=== PATIENT | male | born 1960 | race Caucasian/White ===

== ENCOUNTER 2017-09-23 09:54 | Day surgery (SDC) | payer BC ==
[2017-09-23] MEDS ORDERED: fentaNYL 100 MCG/2 ML SDV ONE (09:55)
[2017-09-23] MEDS ORDERED: Propofol 200 MG/20 ML SDV ONE (09:55)
[2017-09-23] MEDS ORDERED: Midazolam 1 MG/ML 2 ML SDV ONE (09:55)
[2017-09-23] MEDS ORDERED: Sodium Chloride 0.9% 5 ML Syringe FLUSH PRN (10:00)
[2017-09-23] MEDS ORDERED: Lactated Ringers 1,000 ML IV SCH (10:00)
[2017-09-23] MEDS ORDERED: Propofol 200 MG/20 ML SDV IV ONE (11:34)
[2017-09-23] MEDS ORDERED: fentaNYL 100 MCG/2 ML SDV IV ONE (11:34)
[2017-09-23] MEDS ORDERED: Midazolam 1 MG/ML 2 ML SDV IV ONE (11:34)
--- NOTE | 2017-09-23 11:58 | PCM.OPNOTE ---
- General Post-Op/Procedure Note Date of Surgery/Procedure: 09/23/17 Operative Procedure(s): Colonoscopy and polypectomy Findings: Very small polyp was identified in the rectum approximately 12 cm from anal margin. Polypectomies performed with a regular cold biopsy forceps. Pre Op Diagnosis: Alteration of bowel habits, abdominal pain. Post-Op Diagnosis: Small polyp of the rectum otherwise negative colonoscopy. Anesthesia Technique: Moderate Sedation Primary Surgeon: Bernard Rios Complications: None Condition: Good Free Text/Narrative:: INFORMED CONSENT: Patient is here today for elective colonoscopy. All aspects of this procedure have been discussed with the patient. All possible complications also, including possibility of perforation, infection, pain, bleeding and unknown complications. In the event of perforation patient may need to have abdominal exploration, colon resection, colostomy and even was discussed. Anesthetic complications were handled by anesthesia department. The patient understands fully well. Patient did not have any further questions for me at the end of my interview. The patient wishes for me to proceed. PREOPERATIVE DIAGNOSIS/INDICATIONS: Alteration of bowel habits, abdominal pain. POSTOPERATIVE DIAGNOSIS: [Small polyp in the rectum otherwise negative colonoscopy] INSTRUMENT USED: Olympus videocolonoscope. ASA CLASSIFICATION: [2] ANESTHESIA: Continuous EKG, oximetry and intermittent blood pressure and respiratory monitoring were performed throughout the procedure. IV Versed and Fentanyl were administered. PROCEDURE PERFORMED: Colonoscopy POSITIONS OF PATIENT: Left lateral. RECTUM: A small polyp was identified at 15 cm. This was removed using the cold biopsy forceps.. SIGMOID COLON: Normal. DESCENDING COLON: Normal. SPLENIC FLEXURE: Normal. TRANSVERSE COLON: Normal. HEPATIC FLEXURE: Normal. ASCENDING COLON: Normal. CECUM: Normal. ILEOCECAL VALVE: Normal. BIOPSY: None. TOLERANCE: Excellent. COMPLICATIONS: None.
[2017-09-23 12:40] VITALS: BP 151/72
== END 2017-09-23 13:07 | disposition home or self-care (01) ==
LOC: KA.SDS 09:54
PROVIDERS: ATTEND Family Medicine
DX: K62.1 Rectal polyp (principal); R19.4 Change in bowel habit; R10.9 Unspecified abdominal pain
CPT/HCPCS: 45380; J2250; J2704; J3010; J7120

== ENCOUNTER 2019-12-11 01:47 | Emergency (ER) | payer OTHER ==
--- NOTE | 2019-12-11 02:12 | EDM.PDOC ---
ED HPI GENERAL MEDICAL PROBLEM - General Chief Complaint: General Stated Complaint: abdominal pain Time Seen by Provider: 12/11/19 02:11 Source of Information: Reports: Patient, Family History Limitations: Reports: No Limitations - History of Present Illness INITIAL COMMENTS - FREE TEXT/NARRATIVE: Awoke 0120 with severe right-sided abdominal pain. Right side mid abdominal nonradiating. States yesterday urine was slightly darker. Denies fever chills, or illness. Denies any exposures to illness, no viral exposure. No heavy lifting or episodic changes. Urge to urinate but unable to go once at home. Episode nausea with no vomiting. Ice cream did not agree with him last night but states that is not uncommon. Denies any fatty food irritants or gallbladder history. Did have kidney stone 2013 but states this pain is different. No known medical concerns attributed similar to this. Onset: Today Duration: Minutes:, Getting Worse Location: Reports: Abdomen Quality: Reports: Ache, Pressure Severity: Moderate Improves with: Reports: None Worsens with: Reports: Movement Context: Reports: Other Associated Symptoms: Reports: No Other Symptoms Right Abdomen Pain Score (Numeric/FACES): 10 - Related Data Allergies Allergy/AdvReac Type Severity Reaction Status Date / Time No Known Drug Allergies Allergy Cannot Verified 12/11/19 03:05 Remember Home Meds: Home Meds Benazepril [Lotensin] 5 mg PO DAILY 12/11/19 [History] Cholecalciferol (Vitamin D3) [Vitamin D3] 50 mcg PO BID 12/11/19 [History] Glucosamine/Msm/Chondroitin A [Glucosamine Chondroit MSM Tab] 2 tab PO QPM 12/11/19 [History] Hydrocodone/Acetaminophen [[place] 10-325 Tablet] 1 each PO Q4HR 5 Days #20 tablet 12/11/19 [Rx] Naproxen Sodium 220 mg PO BID 12/11/19 [History] Tamsulosin HCl [Flomax] 0.4 mg PO DAILY 30 Days #30 cap.er.24h 12/11/19 [Rx] Thyroid,Pork [[place] Thyroid] 30 mg PO QAM 12/11/19 [History] Past Medical History HEENT History: Reports: None Cardiovascular History: Reports: Hypertension Respiratory History: Reports: None Gastrointestinal History: Reports: None Genitourinary History: Reports: Renal Calculus (2013) Musculoskeletal History: Reports: None Neurological History: Reports: None Psychiatric History: Reports: None Endocrine/Metabolic History: Reports: Hypothyroidism Hematologic History: Reports: None Immunologic History: Reports: None Oncologic (Cancer) History: Reports: None Dermatologic History: Reports: None - Infectious Disease History Infectious Disease History: Reports: None - Past Surgical History GI Surgical History: Reports: Colonoscopy Male Surgical History: Reports: Lithotripsy ([facility]) - History Comment History Comment: Recent physical past month, stating everything was doing well with no concerns. Social & Family History - Family History Family Medical History: Noncontributory - Tobacco Use Smoking Status *Q: Former Smoker Tobacco Use Within Last Twelve Months: No Used Tobacco, but Quit: Yes Month/Year Tobacco Last Used: 1989? Smoking Cessation Information Provided To Patient: No Second Hand Smoke Exposure: No - Caffeine Use Caffeine Use: Reports: Coffee - Alcohol Use Days Per Week of Alcohol Use: 0 Number of Drinks Per Day: 0 Total Drinks Per Week: 0 Alcohol Use in Last Twelve Months: No - Recreational Drug Use Recreational Drug Use: No Drug Use in Last 12 Months: No - Living Situation & Occupation Living situation: Reports: , with Spouse Occupation: Employed (farm truck driver) ED ROS GENERAL - Review of Systems Review Of Systems: Comprehensive ROS is negative, except as noted in HPI. ED EXAM, GENERAL - Physical Exam Exam: See Below General Appearance: Alert, WD/WN, Moderate Distress Ears: Normal External Exam, Normal Canal, Hearing Grossly Normal Nose: Normal Inspection, Normal Mucosa, No Blood Throat/Mouth: Normal Inspection, Normal Lips, Normal Teeth, Normal Gums, Normal Oropharynx, Normal Voice, No Airway Compromise Head: Atraumatic, Normocephalic Neck: Normal Inspection, Supple, Non-Tender, Full Range of Motion Respiratory/Chest: No Respiratory Distress, Lungs Clear, Normal Breath Sounds, No Accessory Muscle Use, Chest Non-Tender Cardiovascular: Normal Peripheral Pulses, Regular Rate, Rhythm, No Edema, No Gallop, No JVD, No Murmur, No Rub GI/Abdominal: Soft, Tender (Right to mid and slightly to the right flank) (Male) Exam: Deferred Rectal (Males) Exam: Deferred Back Exam: Normal Inspection, Full Range of Motion, CVA Tenderness (R) Extremities: Normal Inspection, Normal Range of Motion, Non-Tender, Normal Capillary Refill, No Pedal Edema Neurological: Alert, Oriented, CN II-XII Intact, Normal Cognition, Normal Gait, Normal Reflexes, No Motor/Sensory Deficits Psychiatric: Normal Affect, Normal Mood Skin Exam: Warm, Dry, Intact, Normal Color, No Rash Lymphatic: No Adenopathy Course - Vital Signs Last Recorded V/S: Last Vital Signs Temp 35.9 C L 12/11/19 02:08 Pulse 99 12/11/19 02:08 Resp 18 12/11/19 02:08 BP 171/103 H 12/11/19 02:08 Pulse Ox 98 12/11/19 02:08 - Orders/Labs/Meds Orders: Active Orders 24 hr Category Date Time Status Peripheral IV Care [RC] . DIRECTED Care 12/11/19 02:17 Active Abdomen Pelvis wo Cont [CT] Stat Exams 12/11/19 03:19 Ordered Sodium Chloride 0.9% [Normal Saline] 1,000 ml Med 12/11/19 03:45 Ordered IV ASDIRECTED Sodium Chloride 0.9% [Saline Flush] Med 12/11/19 02:17 Active 10 ml FLUSH Q8HR PRN Peripheral IV Insertion Adult [OM.PC] Routine Oth 12/11/19 02:17 Ordered Medication Orders Sodium Chloride (Normal Saline) 1,000 mls @ 999 mls/hr IV ASDIRECTED MIGUEL ANGEL Last Admin: 12/11/19 03:46 Dose: 999 mls/hr Documented by: ABERCEL Sodium Chloride (Saline Flush) 10 ml FLUSH Q8HR PRN PRN Reason: keep vein open Labs: Laboratory Tests 12/11/19 12/11/19 12/11/19 Range/Units 02:41 02:41 03:05 WBC 7.60 (5.00-10.00) 10^3/uL RBC 5.34 (4.50-6.00) 10^6/uL Hgb 16.3 (13.0-17.0) g/dL Hct 47.0 (40.0-52.0) % MCV 88.0 (82.0-92.0) fL MCH 30.5 (27.0-31.0) pg MCHC 34.7 (32.0-36.0) g/dL RDW 12.3 (11.5-14.5) % Plt Count 266 (150-400) 10^3/uL MPV 8.9 (7.4-10.4) fL Immature Gran % (Auto) 0.1 (0.0-5.0) % Neut % (Auto) 46.7 L (50.0-70.0) % Lymph % (Auto) 37.5 (20.0-40.0) % [place] % (Auto) 9.6 H (2.0-8.0) % Eos % (Auto) 5.8 H (1.0-3.0) % Baso % (Auto) 0.3 (0.0-1.0) % Neut # (Auto) 3.55 (2.50-7.00) 10^3/uL Lymph # (Auto) 2.85 (1.00-4.00) 10^3/uL [place] # (Auto) 0.73 (0.10-0.80) 10^3/uL Eos # (Auto) 0.44 H (0.10-0.30) 10^3/uL Baso # (Auto) 0.02 (0.00-0.10) 10^3/uL Immature Gran # (Auto) 0.01 (0.00-0.50) 10^3/uL Sodium 147 H (136-145) mmol/L Potassium 4.1 (3.3-5.3) mmol/L Chloride 106 (98-115) mmol/L Carbon Dioxide 27.3 (21.0-32.0) mmol/L Anion Gap 17.8 H (5-15) mmol/L BUN 28 H (6-25) mg/dL Creatinine 1.00 (0.51-1.17) mg/dL Est Cr Clr Drug Dosing 78.56 mL/min Estimated GFR (MDRD) > 60 mL/min Glucose 126 H (75 - 99) mg/dL Calcium 9.1 (8.7-10.3) mg/dL Total Bilirubin 0.5 (0.2-1.0) mg/dL AST 21 (15-37) U/L ALT 35 (12-78) U/L Alkaline Phosphatase 75 (46-116) IU/L Total Protein 7.7 (6.4-8.2) g/dL Albumin 4.05 (3.00-4.80) g/dL Amylase 45 (25-125) U/L Lipase 165 (73-393) U/L Specimen Type Urincc Urine Color Dark yellow H (YELLOW) Urine Appearance Clear (CLEAR) Urine pH 5.5 (5.0-9.0) Ur Specific [place] >= 1.030 (1.005-1.030) Urine Protein Negative (NEGATIVE) mg/dL Urine Glucose (UA) Negative (NEGATIVE) mg/dL Urine Ketones Negative (NEGATIVE) mg/dL Urine Occult Blood Large H (NEGATIVE) Urine Nitrite Negative (NEGATIVE) Urine Bilirubin Negative (NEGATIVE) Urine Urobilinogen 0.2 (0.2-1.0) E.U./dL Ur Leukocyte Esterase Negative (NEGATIVE) Urine RBC 50-75 H (0-5) /HPF Urine WBC 0-5 (0-5) /HPF Ur Epithelial Cells Rare /LPF Amorphous Sediment Few (0/HPF) /HPF Urine Bacteria Not seen (NONE TO FEW) /HPF Urine Mucus Few H (NEGATIVE) /LPF Meds: Medications Generic Name Dose Route Start Last Admin Trade Name Freq PRN Reason Stop Dose Admin Sodium Chloride 1,000 mls @ 999 mls/hr 12/11/19 03:45 12/11/19 03:46 Normal Saline IV 999 mls/hr ASDIRECTED MIGUEL ANGEL Administration Sodium Chloride 10 ml 12/11/19 02:17 Saline Flush FLUSH Q8HR PRN keep vein open Discontinued Medications Generic Name Dose Route Start Last Admin Trade Name Freq PRN Reason Stop Dose Admin Hydromorphone HCl 1 mg 12/11/19 03:58 12/11/19 04:03 Dilaudid IVPUSH 12/11/19 03:59 1 mg ONETIME ONE Administration Sodium Chloride 1,000 mls @ 999 mls/hr 12/11/19 02:20 12/11/19 02:29 Normal Saline IV 12/11/19 03:20 999 mls/hr .BOLUS ONE Administration Ketorolac Tromethamine 30 mg 12/11/19 02:28 12/11/19 02:44 Toradol IVPUSH 12/11/19 02:29 30 mg ONETIME ONE Administration Ketorolac Tromethamine 30 mg 12/11/19 02:30 12/11/19 02:50 Toradol IM 12/11/19 02:31 30 mg ONETIME ONE Administration Ondansetron HCl 4 mg 12/11/19 02:34 12/11/19 02:38 Zofran IVPUSH 12/11/19 02:35 4 mg ONETIME ONE Administration Tamsulosin HCl 0.4 mg 12/11/19 03:57 12/11/19 04:07 Flomax PO 12/11/19 03:58 0.4 mg ONETIME ONE Administration - Re-Assessments/Exams Free Text/Narrative Re-Assessment/Exam: 12/11/19 03:48 Dark urine on void, Toradol improving pain. [address] completed. Free Text/Narrative Re-Assessment/Exam: 12/11/19 05:22 Pain flared up shortly after CT was completed while waiting for report. Report confirmed to millimeter stone 2.5 mm from the UVJ. Dilaudid eased discomfort concluded second bag of saline, ambulates to the bathroom with no difficulty voiding. Pain continues to fluctuate colicky in nature as he is continuing the passing process. He is aware of straining urine and content will follow up with clinic as needed or return if severe uncontrollable pain. Departure - Departure Time of Disposition: 05:12 Disposition: Home, Self-Care 01 Condition: Good Clinical Impression: Renal lithiasis, Dehydration - Discharge Information *PRESCRIPTION DRUG MONITORING PROGRAM REVIEWED*: Yes *COPY OF PRESCRIPTION DRUG MONITORING REPORT IN PATIENT HYUN: Yes Instructions: Kidney Stones, Dietary Guidelines to Help Prevent Kidney Stones Referrals: Farhan Osborne NP [Primary Care Provider] - Forms: ED Department Discharge Additional Instructions: Continue your regular medications daily as previously ordered. You need to increase your fluid intake daily, predominantly water. Flomax 0.4 mg daily until you have confirmed passing the stone by straining all urine. Once you pass and collect the stone you have the option of bringing it to your clinic for a stone analysis to determine composition. Hydrocodone every 4-6 hours as needed for discomfort. No driving or operating equipment while taking that medication. Medications being sent home with you for coverage until pharmacy opens on Thursday. Call or return if pain worsens or does not stabilize with medications. Contact your clinic if stone does not pass by mid week, they would be able to perform ultrasound versus undergoing another CT scan. Sepsis Event Note (ED) - Focused Exam Vital Signs: Vital Signs Temp Pulse Resp BP Pulse Ox 12/11/19 02:08 35.9 C L 99 18 171/103 H 98 - Problem List & Annotations (1) Abdominal pain in male SNOMED Code(s): 17367315, 386610101 Code(s): R10.9 - UNSPECIFIED ABDOMINAL PAIN Status: Acute Priority: High Onset Date: ~12/11/19 (2) Flank pain with history of urolithiasis SNOMED Code(s): 804059859 Code(s): R10.9 - UNSPECIFIED ABDOMINAL PAIN; Z87.442 - PERSONAL HISTORY OF URINARY CALCULI Status: Acute Priority: High Onset Date: ~12/11/19 (3) Renal lithiasis SNOMED Code(s): 63700548 Code(s): N20.0 - CALCULUS OF KIDNEY Status: Acute Priority: High (4) Dehydration SNOMED Code(s): 57312902 Code(s): E86.0 - DEHYDRATION Status: Acute Priority: Medium - Problem List Review Problem List Initiated/Reviewed/Updated: Yes - My Orders Last 24 Hours: My Active Orders 12/11/19 02:17 Peripheral IV Care [RC] . DIRECTED Sodium Chloride 0.9% [Saline Flush] 10 ml FLUSH Q8HR PRN Peripheral IV Insertion Adult [OM.PC] Routine 12/11/19 03:19 Abdomen Pelvis wo Cont [CT] Stat 12/11/19 03:45 Sodium Chloride 0.9% [Normal Saline] 1,000 ml IV ASDIRECTED - Assessment/Plan Last 24 Hours: My Active Orders 12/11/19 02:17 Peripheral IV Care [RC] . DIRECTED Sodium Chloride 0.9% [Saline Flush] 10 ml FLUSH Q8HR PRN Peripheral IV Insertion Adult [OM.PC] Routine 12/11/19 03:19 Abdomen Pelvis wo Cont [CT] Stat 12/11/19 03:45 Sodium Chloride 0.9% [Normal Saline] 1,000 ml IV ASDIRECTED Plan: Continue your regular medications daily as previously ordered. You need to increase your fluid intake daily, predominantly water. Flomax 0.4 mg daily until you have confirmed passing the stone by straining all urine. Once you pass and collect the stone you have the option of bringing it to your clinic for a stone analysis to determine composition. Hydrocodone every 4-6 hours as needed for discomfort. No driving or operating equipment while taking that medication. Medications being sent home with you for coverage until pharmacy opens on [place]. Call or return if pain worsens or does not stabilize with medications. Contact your clinic if stone does not pass by mid week, they would be able to perform ultrasound versus undergoing another CT scan.
[2019-12-11] MEDS ORDERED: Sodium Chloride 0.9% 10 ML Syringe FLUSH PRN (02:17)
[2019-12-11] MEDS: Sodium Chloride 0.9% 1,000 ML IV ONE (02:29)
[2019-12-11 02:33] VITALS: BP 171/103; PULSE 99
[2019-12-11] MEDS: Ondansetron 4 MG/2 ML SDV IVPUSH ONE (02:38)
[2019-12-11] MEDS: Ketorolac 30 MG/ML SDV IVPUSH ONE (02:44)
[2019-12-11] MEDS: Ketorolac 30 MG/ML SDV IM ONE (02:50)
[2019-12-11 03:14] LABS: ANION GAP 17.8 mmol/L (5-15); CHLORIDE,CL 106 mmol/L (98-115); SODIUM,NA 147 mmol/L (136-145)
[2019-12-11] MEDS: Sodium Chloride 0.9% 1,000 ML IV SCH (03:46)
[2019-12-11] MEDS: HYDROmorphone 1 MG/ML Syringe IVPUSH ONE (04:03)
[2019-12-11] MEDS: Tamsulosin 0.4 MG Cap.ER PO ONE ×2 (04:07→06:06)
[2019-12-11] MEDS ORDERED: Acetaminophen/HYDROcodone 325-10 MG Tab PO PRN (04:58)
[2019-12-11] MEDS ORDERED: Tamsulosin 0.4 MG Cap.ER PO SCH (09:00)
--- NOTE | 2019-12-11 10:02 | CT ---
[id number] CT/CT Abdomen Pelvis WO IV EXAM: CT Abdomen Pelvis WO IV CLINICAL DATA: RENAL COLIC, HEMATURIA, RT FLANK PAIN. COMPARISON STUDY: None. FINDINGS: Lung bases are clear. Liver, spleen, gallbladder, pancreas, and adrenal glands are unremarkable. 3 mm stone within the distal 3rd of the right ureter resulting in mild right hydroureteronephrosis. A few punctate additional nonobstructing renal calculi bilaterally. No bowel obstruction or inflammation. The appendix is visualized and appears normal. No lymphadenopathy, free fluid, or pneumoperitoneum. Scattered changes of spondylosis the spine. No fracture or osseous lesion. IMPRESSION: 1. 3 mm stone within the distal 3rd of the right ureter resulting in mild right hydroureteronephrosis. Darian Pham DO 12/11/19 1001 Thank you for allowing us to participate in the care of your patient.
== END 2019-12-11 05:27 | disposition home or self-care (01) ==
LOC: MERGE 01:47 → KA.ED 01:47
DX: E86.0 Dehydration (principal); N13.2 Hydronephrosis with renal and ureteral calculous obstruction; I10 Essential (primary) hypertension; E03.9 Hypothyroidism, unspecified; Z87.891 Personal history of nicotine dependence; Z79.899 Other long term (current) drug therapy
CPT/HCPCS: 74176; 80053; 81001; 82150; 83690; 85025; 96361; 96372; 96374; 96375; 99284; 99284-25; A9270-GY; J1170; J1885; J2405; J7030

== ENCOUNTER 2019-12-12 09:57 | Inpatient (IN) | payer OTHER ==
[2019-12-12] MEDS ORDERED: Sodium Chloride 0.9% 1,000 ML IV ONE (10:33)
[2019-12-12] MEDS ORDERED: Ondansetron 4 MG/2 ML SDV ONE (10:49)
[2019-12-12] MEDS ORDERED: Morphine 2 MG/ML SYRINGE ONE (10:49)
[2019-12-12] MEDS: Ondansetron 4 MG/2 ML SDV IVPUSH PRN (10:52)
[2019-12-12] MEDS: Morphine 2 MG/ML SYRINGE IVPUSH PRN ×3 (10:54→13:36)
[2019-12-12] MEDS ORDERED: Morphine 2 MG/ML SYRINGE IVPUSH PRN (10:58)
[2019-12-12] MEDS ORDERED: Ondansetron 4 MG/2 ML SDV IV PRN (10:58)
[2019-12-12] MEDS ORDERED: Sodium Chloride 0.9% 1,000 ML IV SCH ×2 (11:00)
[2019-12-12] MEDS: Tamsulosin 0.4 MG Cap.ER PO SCH (11:56)
[2019-12-12] MEDS ORDERED: Ketorolac 30 MG/ML SDV IVPUSH ONE (14:08)
[2019-12-12] MEDS: Sodium Chloride 0.9% 1,000 ML IV SCH (19:33)
[2019-12-12] MEDS: Ketorolac 30 MG/ML SDV IVPUSH PRN (20:22)
[2019-12-13] MEDS: Sodium Chloride 0.9% 1,000 ML IV SCH ×4 (02:20→22:43)
[2019-12-13] MEDS: ARMOUR THYROID 30 MG PO SCH (06:16)
[2019-12-13] MEDS: Ketorolac 30 MG/ML SDV IVPUSH PRN ×2 (06:29→12:34)
[2019-12-13] MEDS ORDERED: ARMOUR THYROID 30 MG PO SCH (07:00)
[2019-12-13 07:24] LABS: ANION GAP 14.2 mmol/L (5-15)
[2019-12-13] MEDS: Tamsulosin 0.4 MG Cap.ER PO SCH (08:29)
[2019-12-13] MEDS: BENAZEPRIL 5 MG PO SCH (08:29)
[2019-12-13] MEDS ORDERED: Benazepril 10 MG Tab PO SCH (09:00)
[2019-12-13] MEDS: Morphine 2 MG/ML SYRINGE IVPUSH PRN (11:11)
[2019-12-13] MEDS: Acetaminophen 325 MG Tab PO PRN ×4 (11:51→23:47)
[2019-12-13] MEDS ORDERED: Ketorolac 10 MG Tab PO PRN (12:28)
[2019-12-13] MEDS ORDERED: Ketorolac 30 MG/ML SDV IVPUSH PRN (14:44)
--- NOTE | 2019-12-13 15:50 | PCM.PN ---
- General Info Date of Service: 12/13/19 Functional Status: Reports: Tolerating Diet, Urinating. Denies: Pain Controlled, Ambulating - Review of Systems General: Reports: Malaise. Denies: Fever, Chills, Night Sweats HEENT: Reports: No Symptoms Pulmonary: Reports: No Symptoms Cardiovascular: Reports: No Symptoms Gastrointestinal: Reports: Abdominal Pain Genitourinary: Reports: Pain, Hematuria. Denies: Dysuria, Retention Musculoskeletal: Reports: No Symptoms Skin: Reports: No Symptoms Neurological: Reports: No Symptoms Psychiatric: Reports: Anxiety - Patient Data Vitals - Most Recent: Last Vital Signs Temp 97.6 F 12/13/19 14:38 Pulse 83 12/13/19 14:38 Resp 20 12/13/19 14:38 BP 133/79 12/13/19 14:38 Pulse Ox 96 12/13/19 14:38 Weight - Most Recent: 221 lb 3.2 oz I&O - Last 24 Hours: Intake & Output 12/13/19 12/13/19 12/13/19 06:59 14:59 22:59 Intake Total 2639 Output Total 1350 1000 Balance 1289 -1000 Lab Results Last 24 Hours: Laboratory Results - last 24 hr 12/13/19 12/13/19 Range/Units 06:55 06:55 WBC 10.22 H (5.00-10.00) 10^3/uL RBC 4.32 L (4.50-6.00) 10^6/uL Hgb 13.0 (13.0-17.0) g/dL Hct 38.3 L (40.0-52.0) % MCV 88.7 (82.0-92.0) fL MCH 30.1 (27.0-31.0) pg MCHC 33.9 (32.0-36.0) g/dL RDW 12.5 (11.5-14.5) % Plt Count 204 (150-400) 10^3/uL MPV 8.7 (7.4-10.4) fL Immature Gran % (Auto) 0.1 (0.0-5.0) % Neut % (Auto) 77.8 H (50.0-70.0) % Lymph % (Auto) 10.5 L (20.0-40.0) % [place] % (Auto) 10.6 H (2.0-8.0) % Eos % (Auto) 0.8 L (1.0-3.0) % Baso % (Auto) 0.2 (0.0-1.0) % Neut # (Auto) 7.96 H (2.50-7.00) 10^3/uL Lymph # (Auto) 1.07 (1.00-4.00) 10^3/uL [place] # (Auto) 1.08 H (0.10-0.80) 10^3/uL Eos # (Auto) 0.08 L (0.10-0.30) 10^3/uL Baso # (Auto) 0.02 (0.00-0.10) 10^3/uL Immature Gran # (Auto) 0.01 (0.00-0.50) 10^3/uL Sodium 142 (136-145) mmol/L Potassium 4.1 (3.3-5.3) mmol/L Chloride 108 (98-115) mmol/L Carbon Dioxide 23.9 (21.0-32.0) mmol/L Anion Gap 14.2 (5-15) mmol/L BUN 17 (6-25) mg/dL Creatinine 1.51 H (0.51-1.17) mg/dL Est Cr Clr Drug Dosing 52.02 mL/min Estimated GFR (MDRD) 47 mL/min Glucose 110 H (75 - 99) mg/dL Calcium 8.1 L (8.7-10.3) mg/dL Med Orders - Current: Current Medications Acetaminophen (Tylenol) 650 mg PO Q4H PRN PRN Reason: Pain Last Admin: 12/13/19 11:51 Dose: 650 mg Documented by: Sodium Chloride (Normal Saline) 1,000 mls @ 150 mls/hr IV ASDIRECTED [facility] Last Admin: 12/13/19 09:06 Dose: 150 mls/hr Documented by: Ketorolac Tromethamine (Toradol) 15 mg IVPUSH Q6H PRN PRN Reason: Pain Morphine Sulfate (Morphine) 2 mg IVPUSH Q1H PRN PRN Reason: Pain Last Admin: 12/13/19 11:11 Dose: 2 mg Documented by: Ptom Benazepril (5mg) 1 each PO DAILY [facility] Last Admin: 12/13/19 08:29 Dose: 1 each Documented by: Ptom [place] (Thyroid 30 Mg) 30 mg PO 0700 [facility] Last Admin: 12/13/19 06:16 Dose: 30 mg Documented by: Ondansetron HCl (Zofran) 4 mg IVPUSH Q4H PRN PRN Reason: Nausea/Vomiting Last Admin: 12/12/19 10:52 Dose: 4 mg Documented by: Tamsulosin HCl (Flomax) 0.8 mg PO DAILY [facility] Discontinued Medications Benazepril HCl (Lotensin) 5 mg PO DAILY [facility] Sodium Chloride (Normal Saline) 1,000 mls @ 999 mls/hr IV .BOLUS ONE Stop: 12/12/19 11:33 Last Admin: 12/12/19 10:52 Dose: 999 mls/hr Documented by: Sodium Chloride (Normal Saline) 1,000 mls @ 125 mls/hr IV ASDIRECTED [facility] Last Infusion: 12/12/19 17:48 Dose: 150 mls/hr Documented by: Ketorolac Tromethamine (Toradol) 30 mg IVPUSH ONETIME ONE Stop: 12/12/19 14:09 Last Admin: 12/12/19 14:16 Dose: 30 mg Documented by: Ketorolac Tromethamine (Toradol) 30 mg IVPUSH Q6H PRN PRN Reason: Pain Last Admin: 12/13/19 12:34 Dose: 30 mg Documented by: Ketorolac Tromethamine (Toradol) 10 mg PO Q8H PRN PRN Reason: Pain Stop: 12/18/19 12:29 Morphine Sulfate (Morphine) Confirm Administered Dose 2 mg .ROUTE .STK-MED ONE Stop: 12/12/19 10:50 Last Admin: 12/12/19 11:00 Dose: Not Given Documented by: Ptom [place] (Thyroid 30 Mg) 30 mg PO DAILY [facility] Ondansetron HCl (Zofran) Confirm Administered Dose 4 mg .ROUTE .STK-MED ONE Stop: 12/12/19 10:50 Last Admin: 12/12/19 11:01 Dose: Not Given Documented by: Tamsulosin HCl (Flomax) 0.4 mg PO DAILY [facility] Last Admin: 12/13/19 08:29 Dose: 0.4 mg Documented by: - Exam Quality Assessment: No: Supplemental Oxygen General: Alert, Oriented, Mild Distress Neck: Supple Lungs: Clear to Auscultation, Normal Respiratory Effort Cardiovascular: Regular Rate, Regular Rhythm GI/Abdominal Exam: Soft Back Exam: No: CVA Tenderness (L), CVA Tenderness (R) Skin: Warm, Dry, Intact Neurological: Normal Speech Psy/Mental Status: Alert, Anxious Sepsis Event Note - Evaluation Sepsis Screening Result: No Definite Risk - Focused Exam Vital Signs: Vital Signs Temp Temp Pulse Resp BP Pulse Ox 12/13/19 14:38 97.6 F 83 20 133/79 96 12/13/19 13:48 99.1 F 88 20 134/78 94 L 12/13/19 11:00 99.8 F 89 20 144/83 H 97 12/13/19 06:26 98.9 F 88 20 128/77 96 Date Exam was Performed: 12/13/19 Time Exam was Performed: 15:50 - Problem List Review Problem List Initiated/Reviewed/Updated: Yes - My Orders Last 24 Hours: My Active Orders 12/13/19 11:35 Acetaminophen [Tylenol] 650 mg PO Q4H PRN 12/13/19 14:44 Ketorolac [Toradol] 15 mg IVPUSH Q6H PRN 12/13/19 15:35 CBC WITH AUTO DIFF [HEME] Routine 12/14/19 09:00 Tamsulosin [Flomax] 0.8 mg PO DAILY - Plan Plan:: History summary 58-year-old gentleman was admitted from [facility] after he failed conservative home medical expulsion therapy due to right-sided renal stone. 12/11/19: Evaluated at [facility] ER and diagnosed with a right 3 mm stone within the distal 3rd of right ureter resulting in mild hydroureteronephrosis. He was given IV fluids and pain medications along with oral flomax. He was instructed to strain his urine and bring the stone for analysis however he has today did not past. He did have a creatinine of .00, WBC 7.6 with low neutrophil count, UA revealed large blood and negative bacteria. When he was seen yesterday at the [facility] he had significant right flank pain extending into his groin which she still has today, coupled with generalized abdominal pain. Since he had been vomiting quite a bit he was admitted for hospitalization IV fluids in pain control measures. Pertinent history includes nephrolithiasis twice with patient stated 4 mm stone (cannot be validated through EMR) requiring ureter stent and lithotripsy. Hospital course to date No overnight calls or concerns patient actually did fairly well however this morning on rounds patient had more pain right side. Ketorolac appears to be somewhat improving his pain however not able to tolerate hydrocodone due to GI symptoms. Ongoing pain ongoing IV fluids. No fever no chills white count 10,000. Primary hospital problems Nephrolithiasis, appears uncomplicated this time without infection. Ongoing pain management strategies, increase Flomax to 0.8 mg. Encourage oral fluids. Anti-emetics with Toradol, strain urine. WBC this afternoon at 1600. Report rigors chills fever. Amylase also 4 times a day today. Changed to inpatient status as patient failed home medical expulsion therapy and likely will need to be monitored for signs or symptoms of sequela such as infection
[2019-12-14] MEDS ORDERED: Ketorolac 30 MG/ML SDV IVPUSH ONE ×3 (03:08→03:30)
[2019-12-14] MEDS: Sodium Chloride 0.9% 1,000 ML IV SCH ×3 (05:28→18:53)
[2019-12-14] MEDS: Acetaminophen 325 MG Tab PO PRN ×2 (05:51→14:17)
[2019-12-14] MEDS: ARMOUR THYROID 30 MG PO SCH ×2 (05:52→06:10)
[2019-12-14] MEDS: Tamsulosin 0.4 MG Cap.ER PO SCH (08:20)
[2019-12-14] MEDS: BENAZEPRIL 5 MG PO SCH (08:20)
[2019-12-14] MEDS ORDERED: Furosemide 40 MG/4 ML VIAL IVPUSH ONE (08:36)
[2019-12-14] MEDS: Ketorolac 30 MG/ML SDV IVPUSH PRN ×3 (09:22→23:30)
--- NOTE | 2019-12-14 10:32 | PCM.PN ---
- General Info Date of Service: 12/14/19 Functional Status: Reports: Tolerating Diet, Ambulating, Urinating. Denies: Pain Controlled - Review of Systems General: Denies: Fever, Weakness, Fatigue HEENT: Reports: No Symptoms Pulmonary: Reports: No Symptoms Cardiovascular: Reports: No Symptoms Gastrointestinal: Reports: Abdominal Pain. Denies: Decreased Appetite, Diarrhea, Nausea Genitourinary: Reports: No Symptoms Musculoskeletal: Reports: No Symptoms Skin: Reports: No Symptoms Neurological: Reports: No Symptoms Psychiatric: Reports: No Symptoms - Patient Data Vitals - Most Recent: Last Vital Signs Temp 97.3 F 12/14/19 06:46 Pulse 87 12/14/19 06:46 Resp 16 12/14/19 06:46 BP 144/88 H 12/14/19 06:46 Pulse Ox 98 12/14/19 06:46 Weight - Most Recent: 221 lb 3.2 oz I&O - Last 24 Hours: Intake & Output 12/13/19 12/14/19 12/14/19 22:59 06:59 14:59 Intake Total 2933 2354 Output Total 1150 2400 Balance 1783 -46 Lab Results Last 24 Hours: Laboratory Results - last 24 hr 12/13/19 Range/Units 15:35 WBC 9.30 (5.00-10.00) 10^3/uL RBC 4.08 L (4.50-6.00) 10^6/uL Hgb 12.2 L (13.0-17.0) g/dL Hct 36.4 L (40.0-52.0) % MCV 89.2 (82.0-92.0) fL MCH 29.9 (27.0-31.0) pg MCHC 33.5 (32.0-36.0) g/dL RDW 12.3 (11.5-14.5) % Plt Count 186 (150-400) 10^3/uL MPV 8.6 (7.4-10.4) fL Immature Gran % (Auto) 0.2 (0.0-5.0) % Neut % (Auto) 71.9 H (50.0-70.0) % Lymph % (Auto) 14.6 L (20.0-40.0) % Churchill % (Auto) 11.8 H (2.0-8.0) % Eos % (Auto) 1.3 (1.0-3.0) % Baso % (Auto) 0.2 (0.0-1.0) % Neut # (Auto) 6.68 (2.50-7.00) 10^3/uL Lymph # (Auto) 1.36 (1.00-4.00) 10^3/uL Churchill # (Auto) 1.10 H (0.10-0.80) 10^3/uL Eos # (Auto) 0.12 (0.10-0.30) 10^3/uL Baso # (Auto) 0.02 (0.00-0.10) 10^3/uL Immature Gran # (Auto) 0.02 (0.00-0.50) 10^3/uL Med Orders - Current: Current Medications Acetaminophen (Tylenol) 650 mg PO Q4H PRN PRN Reason: Pain Last Admin: 12/14/19 05:51 Dose: 650 mg Documented by: Sodium Chloride (Normal Saline) 1,000 mls @ 150 mls/hr IV ASDIRECTED [facility] Last Admin: 12/14/19 05:28 Dose: 150 mls/hr Documented by: Ketorolac Tromethamine (Toradol) 15 mg IVPUSH Q6H PRN PRN Reason: Pain Stop: 12/16/19 08:41 Last Admin: 12/14/19 09:22 Dose: 15 mg Documented by: Morphine Sulfate (Morphine) 2 mg IVPUSH Q1H PRN PRN Reason: Pain Last Admin: 12/13/19 11:11 Dose: 2 mg Documented by: Ptom Benazepril (5mg) 1 each PO DAILY [facility] Last Admin: 12/14/19 08:20 Dose: 1 each Documented by: Ptom Edgar (Thyroid 30 Mg) 30 mg PO 0700 [facility] Last Admin: 12/14/19 06:10 Dose: Not Given Documented by: Ondansetron HCl (Zofran) 4 mg IVPUSH Q4H PRN PRN Reason: Nausea/Vomiting Last Admin: 12/12/19 10:52 Dose: 4 mg Documented by: Tamsulosin HCl (Flomax) 0.8 mg PO DAILY [facility] Last Admin: 12/14/19 08:20 Dose: 0.8 mg Documented by: Discontinued Medications Benazepril HCl (Lotensin) 5 mg PO DAILY [facility] Furosemide (Lasix) 20 mg IVPUSH NOW ONE Stop: 12/14/19 08:37 Last Admin: 12/14/19 09:04 Dose: 20 mg Documented by: Sodium Chloride (Normal Saline) 1,000 mls @ 999 mls/hr IV .BOLUS ONE Stop: 12/12/19 11:33 Last Admin: 12/12/19 10:52 Dose: 999 mls/hr Documented by: Sodium Chloride (Normal Saline) 1,000 mls @ 125 mls/hr IV ASDIRECTED [facility] Last Infusion: 12/12/19 17:48 Dose: 150 mls/hr Documented by: Ketorolac Tromethamine (Toradol) 30 mg IVPUSH ONETIME ONE Stop: 12/12/19 14:09 Last Admin: 12/12/19 14:16 Dose: 30 mg Documented by: Ketorolac Tromethamine (Toradol) 30 mg IVPUSH Q6H PRN PRN Reason: Pain Last Admin: 12/13/19 12:34 Dose: 30 mg Documented by: Ketorolac Tromethamine (Toradol) 10 mg PO Q8H PRN PRN Reason: Pain Stop: 12/18/19 12:29 Ketorolac Tromethamine (Toradol) 15 mg IVPUSH Q6H PRN PRN Reason: Pain Last Admin: 12/13/19 18:03 Dose: 15 mg Documented by: Ketorolac Tromethamine (Toradol) 15 mg IVPUSH ONETIME ONE Stop: 12/14/19 03:09 Last Admin: 12/14/19 03:24 Dose: Not Given Documented by: Ketorolac Tromethamine (Toradol) 30 mg IVPUSH ONETIME ONE Stop: 12/14/19 03:31 Ketorolac Tromethamine (Toradol) 15 mg IVPUSH ONETIME ONE Stop: 12/14/19 03:31 Last Admin: 12/14/19 03:24 Dose: 15 mg Documented by: Morphine Sulfate (Morphine) Confirm Administered Dose 2 mg .ROUTE .STK-MED ONE Stop: 12/12/19 10:50 Last Admin: 12/12/19 11:00 Dose: Not Given Documented by: Ptom Edgar (Thyroid 30 Mg) 30 mg PO DAILY [facility] Ondansetron HCl (Zofran) Confirm Administered Dose 4 mg .ROUTE .STK-MED ONE Stop: 12/12/19 10:50 Last Admin: 12/12/19 11:01 Dose: Not Given Documented by: Tamsulosin HCl (Flomax) 0.4 mg PO DAILY [facility] Last Admin: 12/13/19 08:29 Dose: 0.4 mg Documented by: - Exam General: Alert, Oriented, Mild Distress Lungs: Clear to Auscultation, Normal Respiratory Effort Cardiovascular: Regular Rate, Regular Rhythm GI/Abdominal Exam: Normal Bowel Sounds, Soft Back Exam: No: CVA Tenderness (L), CVA Tenderness (R) Extremities: No Pedal Edema Skin: Warm, Dry, Intact Psy/Mental Status: Alert, Normal Affect, Normal Mood Sepsis Event Note - Evaluation Sepsis Screening Result: No Definite Risk - Focused Exam Vital Signs: Vital Signs Temp Pulse Resp BP Pulse Ox 12/14/19 06:46 97.3 F 87 16 144/88 H 98 12/14/19 03:00 97.9 F 80 20 126/81 98 12/13/19 22:51 98.2 F 84 20 122/75 95 Date Exam was Performed: 12/14/19 Time Exam was Performed: 10:21 - Problem List Review Problem List Initiated/Reviewed/Updated: Yes - My Orders Last 24 Hours: My Active Orders 12/13/19 11:35 Acetaminophen [Tylenol] 650 mg PO Q4H PRN 12/13/19 15:45 Admission Status [Patient Status] [ADT] Routine 12/14/19 08:41 Ketorolac [Toradol] 15 mg IVPUSH Q6H PRN 12/14/19 09:00 Tamsulosin [Flomax] 0.8 mg PO DAILY - Plan Plan:: History summary 58-year-old gentleman was admitted from [facility] after he failed conservative home medical expulsion therapy due to right-sided renal stone. Records obtained from 2013 in [place] when patient had left distal ureteral calculus requiring stone basket extraction and subsequent ureteral stent placement for a 4 mm stone of calcium oxalate monohydrate consistency in which patient failed medical expulsion therapy after several days. 12/11/19: Evaluated at [facility] ER and diagnosed with a right 3 mm stone within the distal 3rd of right ureter resulting in mild hydroureteronephrosis. He was given IV fluids and pain medications along with oral flomax. He was instructed to strain his urine and bring the stone for analysis however he has today did not past. He did have a creatinine of .00, WBC 7.6 with low neutrophil count, UA revealed large blood and negative bacteria. When he was seen yesterday at the [place] [facility] he had significant right flank pain extending into his groin which she still has today, coupled with generalized abdominal pain. Since he had been vomiting quite a bit he was admitted for hospitalization IV fluids in pain control measures. Pertinent history includes nephrolithiasis twice with patient stated 4 mm stone (cannot be validated through EMR) requiring ureter stent and lithotripsy. Hospital course to date 12/12: No overnight calls or concerns patient actually did fairly well however this morning on rounds patient had more pain right side. Ketorolac appears to be somewhat improving his pain however not able to tolerate hydrocodone due to GI symptoms. Ongoing pain ongoing IV fluids. No fever no chills white count 10,000. 12/13: Ambulated on floor however nurses noted patient lying on bathroom floor due to pain yesterday requiring ongoing pain management, heating pad, necessitating changing to inpatient status at it was quite evident patient would not be able to self manage home MET. Primary hospital problems Nephrolithiasis, 3 mm distal third right ureter with mild right hydroureternephrosis. No signs or symptoms of infection. Disposition/overall plan Continue with inpatient status with Ongoing pain management strategies, hydration, continue with maximum flomax to 0.8 mg to maximize passage. Encourage oral fluids. Anti-emetics with Toradol, strain urine. Report rigors chills fever. Ambulate 4 times a day today. Dr. Mcbride urologist was consulted at [place] and would agree with ongoing medical expulsion therapy with IV fluids with possible the need for intervention tomorrow if patient does not seem to be responding to conservative measures. make n.p.o. midnight tonight for anticipation of urology consultation as patient may need stone basket extra ction/ureteral stent placement
[2019-12-15] MEDS: Sodium Chloride 0.9% 1,000 ML IV SCH ×4 (01:53→21:36)
[2019-12-15] MEDS: Acetaminophen 325 MG Tab PO PRN ×2 (04:33→17:31)
[2019-12-15] MEDS: Ketorolac 30 MG/ML SDV IVPUSH PRN ×3 (05:51→19:21)
[2019-12-15] MEDS: ARMOUR THYROID 30 MG PO SCH ×2 (05:55→06:12)
[2019-12-15] MEDS: Ondansetron 4 MG/2 ML SDV IVPUSH PRN (07:42)
[2019-12-15] MEDS: Tamsulosin 0.4 MG Cap.ER PO SCH (08:04)
[2019-12-15] MEDS: BENAZEPRIL 5 MG PO SCH (08:05)
[2019-12-15 09:26] LABS: ANION GAP 8.4 mmol/L (5-15)
[2019-12-15] MEDS ORDERED: Pseudoephedrine 30 MG Tab PO PRN (10:33)
--- NOTE | 2019-12-15 10:35 | PCM.PN ---
- General Info Date of Service: 12/15/19 Functional Status: Reports: Tolerating Diet (been npo), Ambulating, Urinating, New Symptoms (Pain has now shifted from right, sinus pain and pressure now). Denies: Pain Controlled - Review of Systems General: Reports: Appetite (Has been nothing by mouth since midnight last night). Denies: Fever, Weakness, Fatigue, Malaise ( flank), Chills, Night Sweats HEENT: Reports: Headaches, Sinus Congestion. Denies: Sore Throat Pulmonary: Reports: No Symptoms Cardiovascular: Reports: No Symptoms Gastrointestinal: Reports: Abdominal Pain. Denies: Diarrhea, Nausea, Vomiting Genitourinary: Reports: Pain, Flank Pain. Denies: Dysuria, Burning, Urgency, Retention Musculoskeletal: Reports: No Symptoms Skin: Reports: No Symptoms Neurological: Denies: Confusion, Dizziness Psychiatric: Denies: Confusion, Agitation - Patient Data Vitals - Most Recent: Last Vital Signs Temp 98.1 F 12/15/19 06:26 Pulse 84 12/15/19 06:26 Resp 20 12/15/19 06:26 BP 151/99 H 12/15/19 06:26 Pulse Ox 97 12/15/19 06:26 Weight - Most Recent: 221 lb 3.2 oz I&O - Last 24 Hours: Intake & Output 12/14/19 12/15/19 12/15/19 22:59 06:59 14:59 Intake Total 3359 1964 Output Total 4300 1875 Balance -941 89 Lab Results Last 24 Hours: Laboratory Results - last 24 hr 12/15/19 Range/Units 08:56 Sodium 140 (136-145) mmol/L Potassium 3.8 (3.3-5.3) mmol/L Chloride 111 (98-115) mmol/L Carbon Dioxide 24.4 (21.0-32.0) mmol/L Anion Gap 8.4 (5-15) mmol/L BUN 12 (6-25) mg/dL Creatinine 1.27 H (0.51-1.17) mg/dL Est Cr Clr Drug Dosing 61.85 mL/min Estimated GFR (MDRD) 58 mL/min Glucose 105 H (75 - 99) mg/dL Calcium 8.1 L (8.7-10.3) mg/dL Med Orders - Current: Current Medications Acetaminophen (Tylenol) 650 mg PO Q4H PRN PRN Reason: Pain Last Admin: 12/15/19 04:33 Dose: 650 mg Documented by: Sodium Chloride (Normal Saline) 1,000 mls @ 150 mls/hr IV ASDIRECTED [facility] Last Admin: 12/15/19 08:36 Dose: 150 mls/hr Documented by: Ketorolac Tromethamine (Toradol) 15 mg IVPUSH Q6H PRN PRN Reason: Pain Stop: 12/16/19 08:41 Last Admin: 12/15/19 05:51 Dose: 15 mg Documented by: Morphine Sulfate (Morphine) 2 mg IVPUSH Q1H PRN PRN Reason: Pain Last Admin: 12/13/19 11:11 Dose: 2 mg Documented by: Ptom Benazepril (5mg) 1 each PO DAILY [facility] Last Admin: 12/15/19 08:05 Dose: 1 each Documented by: Ptom [place] (Thyroid 30 Mg) 30 mg PO 0700 [facility] Last Admin: 12/15/19 06:12 Dose: Not Given Documented by: Ondansetron HCl (Zofran) 4 mg IVPUSH Q4H PRN PRN Reason: Nausea/Vomiting Last Admin: 12/15/19 07:42 Dose: 4 mg Documented by: Tamsulosin HCl (Flomax) 0.8 mg PO DAILY [facility] Last Admin: 12/15/19 08:04 Dose: 0.8 mg Documented by: Discontinued Medications Benazepril HCl (Lotensin) 5 mg PO DAILY [facility] Furosemide (Lasix) 20 mg IVPUSH NOW ONE Stop: 12/14/19 08:37 Last Admin: 12/14/19 09:04 Dose: 20 mg Documented by: Sodium Chloride (Normal Saline) 1,000 mls @ 999 mls/hr IV .BOLUS ONE Stop: 12/12/19 11:33 Last Admin: 12/12/19 10:52 Dose: 999 mls/hr Documented by: Sodium Chloride (Normal Saline) 1,000 mls @ 125 mls/hr IV ASDIRECTED [facility] Last Infusion: 12/12/19 17:48 Dose: 150 mls/hr Documented by: Ketorolac Tromethamine (Toradol) 30 mg IVPUSH ONETIME ONE Stop: 12/12/19 14:09 Last Admin: 12/12/19 14:16 Dose: 30 mg Documented by: Ketorolac Tromethamine (Toradol) 30 mg IVPUSH Q6H PRN PRN Reason: Pain Last Admin: 12/13/19 12:34 Dose: 30 mg Documented by: Ketorolac Tromethamine (Toradol) 10 mg PO Q8H PRN PRN Reason: Pain Stop: 12/18/19 12:29 Ketorolac Tromethamine (Toradol) 15 mg IVPUSH Q6H PRN PRN Reason: Pain Last Admin: 12/13/19 18:03 Dose: 15 mg Documented by: Ketorolac Tromethamine (Toradol) 15 mg IVPUSH ONETIME ONE Stop: 12/14/19 03:09 Last Admin: 12/14/19 03:24 Dose: Not Given Documented by: Ketorolac Tromethamine (Toradol) 30 mg IVPUSH ONETIME ONE Stop: 12/14/19 03:31 Ketorolac Tromethamine (Toradol) 15 mg IVPUSH ONETIME ONE Stop: 12/14/19 03:31 Last Admin: 12/14/19 03:24 Dose: 15 mg Documented by: Morphine Sulfate (Morphine) Confirm Administered Dose 2 mg .ROUTE .STK-MED ONE Stop: 12/12/19 10:50 Last Admin: 12/12/19 11:00 Dose: Not Given Documented by: Ptom [place] (Thyroid 30 Mg) 30 mg PO DAILY [facility] Ondansetron HCl (Zofran) Confirm Administered Dose 4 mg .ROUTE .STK-MED ONE Stop: 12/12/19 10:50 Last Admin: 12/12/19 11:01 Dose: Not Given Documented by: Tamsulosin HCl (Flomax) 0.4 mg PO DAILY [facility] Last Admin: 12/13/19 08:29 Dose: 0.4 mg Documented by: - Exam Quality Assessment: No: Supplemental Oxygen General: Alert, Oriented, Cooperative, No Acute Distress Lungs: Clear to Auscultation, Normal Respiratory Effort Cardiovascular: Regular Rate, Regular Rhythm (Male) Exam: Deferred Back Exam: No: CVA Tenderness (R) Peripheral Pulses: 2+: Radial (L), Radial (R) Skin: Warm, Dry, Intact Psy/Mental Status: Alert, Normal Affect, Normal Mood Sepsis Event Note - Evaluation Sepsis Screening Result: No Definite Risk - Focused Exam Vital Signs: Vital Signs Temp Pulse Resp BP Pulse Ox 12/15/19 06:26 98.1 F 84 20 151/99 H 97 12/15/19 03:00 97.7 F 86 20 142/91 H 98 12/14/19 23:00 98.1 F 91 20 144/88 H 100 Date Exam was Performed: 12/15/19 Time Exam was Performed: 10:27 - Problem List Review Problem List Initiated/Reviewed/Updated: Yes - My Orders Last 24 Hours: My Active Orders 12/14/19 Dinner NPO After Midnight [Nothing per Oral After Midnight Diet] [DIET] - Plan Plan:: History summary 58-year-old gentleman was admitted from [facility] after he failed conservative home medical expulsion therapy due to right-sided renal stone. Records obtained from 2013 in [place] when patient had left distal ureteral calculus requiring stone basket extraction and subsequent ureteral stent placement for a 4 mm stone of calcium oxalate monohydrate consistency in which patient failed medical expulsion therapy after several days. 12/11/19: Evaluated at [facility] ER and diagnosed with a right 3 mm stone within the distal 3rd of right ureter resulting in mild hydroureteronephrosis. He was given IV fluids and pain medications along with oral flomax. He was instructed to strain his urine and bring the stone for analysis however he has today did not past. He did have a creatinine of .00, WBC 7.6 with low neutrophil count, UA revealed large blood and negative bacteria. When he was seen yesterday at the [facility] he had significant right flank pain extending into his groin which she still has today, coupled with generalized abdominal pain. Since he had been vomiting quite a bit he was admitted for hospitalization IV fluids in pain control measures. Pertinent history includes nephrolithiasis twice with patient stated 4 mm stone (cannot be validated through EMR) requiring ureter stent and lithotripsy. Hospital course to date 12/12: No overnight calls or concerns patient actually did fairly well however this morning on rounds patient had more pain right side. Ketorolac appears to be somewhat improving his pain however not able to tolerate hydrocodone due to GI symptoms. Ongoing pain ongoing IV fluids. No fever no chills white count 10,000. 12/13: Ambulated on floor however nurses noted patient lying on bathroom floor due to pain yesterday requiring ongoing pain management, heating pad, necessitating changing to inpatient status at it was quite evident patient would not be able to self manage home MET. 12/14: Patient right flank pain now shifted to right groin pain, still requiring Toradol for pain management, was made nothing by mouth last night for possible urological intervention. Primary hospital problems Nephrolithiasis, 3 mm distal third right ureter with mild right hydroureternephrosis. No signs or symptoms of infection. Sinus congestion, CRISELDA, sudafed Disposition/overall plan Continue with inpatient status with Ongoing pain management strategies, hydration, continue with maximum flomax to 0.8 mg to maximize passage. Encourage oral fluids. Anti-emetics with Toradol, strain urine. Report rigors chills fever. Ambulate 4 times a day today. Dr. Reed Barr urologist was consulted at [place] and would agree with ongoing medical expulsion therapy with IV fluids with possible the need for intervention next week Thursday. Patient opts to stay inpatient status for another 24 hours as he considers home discharge from MET therapy. Likely f patient still has ongoing pain urology would consider intervening sooner with basket extraction and imaging--even over weekend if he fails outpatient MET therapy. Can eat today however nothing by mouth after midnight tonight.
[2019-12-15] MEDS ORDERED: Oxymetazoline 0.05% Nasal Spray 15 ML Bottle NAS SCH (10:45)
[2019-12-15] MEDS ORDERED: Oxymetazoline 0.05% Nasal Spray 15 ML Bottle NASBOTH SCH (11:15)
[2019-12-15] MEDS: Oxymetazoline 0.05% Nasal Spray 15 ML Bottle NASBOTH SCH (20:15)
[2019-12-16] MEDS: Acetaminophen 325 MG Tab PO PRN ×2 (00:36→06:55)
[2019-12-16] MEDS: Ketorolac 30 MG/ML SDV IVPUSH PRN (01:22)
[2019-12-16] MEDS: Sodium Chloride 0.9% 1,000 ML IV SCH (04:27)
[2019-12-16] MEDS: ARMOUR THYROID 30 MG PO SCH (06:25)
[2019-12-16] MEDS: Oxymetazoline 0.05% Nasal Spray 15 ML Bottle NASBOTH SCH (08:39)
[2019-12-16] MEDS: BENAZEPRIL 5 MG PO SCH (10:07)
[2019-12-16] MEDS: Tamsulosin 0.4 MG Cap.ER PO SCH (10:07)
--- NOTE | 2019-12-16 10:12 | PCM.DCSUM1 ---
Discharge Summary - Hospital Course Free Text/Narrative:: Date of admission: 12/12/2019 Date of discharge: 12/16/2019 Admission diagnoses: # Nephrolithiasis: resolved # Sinus congestion: improving Discharge diagnoses: # Nephrolithiasis # Sinus congestion # HTN # Subclinical hypothyroidism Consultations: [facility] with Dr. Morillo. Patient was scheduled for procedure to remove stone if unable, however, stone has passed. Procedures: None Hospital course: 58[facility] expulsion therapy due to right-sided renal stone. Records obtained from 2013 in [place] when patient had left distal ureteral calculus requiring stone basket extraction and subsequent ureteral stent placement for a 4 mm stone of calcium oxalate monohydrate consistency in which patient failed medical expulsion therapy after several days. 12/11/19: Evaluated at [facility] ER and diagnosed with a right 3 mm stone within the distal 3rd of right ureter resulting in mild hydroureteronephrosis. He was given IV fluids and pain medications along with oral flomax. He was instructed to strain his urine and bring the stone for analysis however as of this date it had not passed. He did have a creatinine of 1.00, WBC 7.6 with low neutrophil count, UA revealed large blood and negative bacteria. When he was seen yesterday at the [facility] he had significant right flank pain extending into his groin which she still has today, coupled with generalized abdominal pain. Since he had been vomiting quite a bit he was admitted for hospitalization IV fluids in pain control measures. Pertinent history includes nephrolithiasis twice with patient stated 4 mm stone (cannot be validated through EMR) requiring ureter stent and lithotripsy. 12/12: No overnight calls or concerns patient actually did fairly well however this morning on rounds patient had more pain right side. Ketorolac appears to be somewhat improving his pain however not able to tolerate hydrocodone due to GI symptoms. Ongoing pain ongoing IV fluids. No fever no chills white count 10,000. 12/13: Ambulated on floor however nurses noted patient lying on bathroom floor due to pain yesterday requiring ongoing pain management, heating pad, necessitating changing to inpatient status at it was quite evident patient would not be able to self manage home MET. 12/14: Patient right flank pain now shifted to right groin pain, still requiring Toradol for pain management, was made nothing by mouth last night for possible urological intervention. 12/15: At approximately 7am patient passed dark colored irregular shaped object and had improvement from pain. He denies nausea/vomiting, abdominal pain or any other difficulties. He verbalizes that he is ready for discharge. Patient will be discharged home with instructions to follow up next week. Discharge and follow-up recommendations: - Discharge to home, self care with - New medications at discharge: -ketorolac 10mg orally every six hours as needed #10 with no refills, do not use with Aleve - Follow-up next week at the [facility] in [place] with provider of choice in Farhan' absence. -Recheck creatinine -Cancel appointment for procedure at [facility] in [place] if patient continues to do well early next week - Discharge Data Discharge Date: 12/16/19 Discharge Disposition: Home, Self-Care 01 Condition: Good - Referral to Home Health Primary Care Physician: Farhan Osborne NP - Patient Instructions Diet: Usual Diet as Tolerated Activity: As Tolerated Notify Provider of: Fever, Increased Pain, Nausea and/or Vomiting - Discharge Plan *PRESCRIPTION DRUG MONITORING PROGRAM REVIEWED*: Yes *COPY OF PRESCRIPTION DRUG MONITORING REPORT IN PATIENT HYUN: No Prescriptions/Med Rec: Ketorolac [Toradol] 10 mg PO Q6H PRN #10 tab PRN Reason: Pain (Severe 7-10) Home Medications: Home Meds [place] Oil/[place]-3 Fatty Acids [Sv [place] Oil 1,000 mg Softgel] 1 each PO DAILY 09/18/17 [History] Benazepril [Lotensin] 5 mg PO DAILY 12/11/19 [History] Cholecalciferol (Vitamin D3) [Vitamin D3] 50 mcg PO BID 12/11/19 [History] Glucosamine/Msm/Chondroitin A [Glucosamine Chondroit MSM Tab] 2 tab PO QPM 11/22 02/11 [History] Thyroid,Pork [Hildebran Thyroid] 30 mg PO QAM 12/11/19 [History] Benazepril HCl 5 mg PO DAILY 12/12/19 [History] Thyroid [Hildebran Thyroid] 30 mg PO DAILY 12/12/19 [History] Acetaminophen [Tylenol] 650 mg PO Q4H PRN tablet 12/16/19 [Rx] Ketorolac [Toradol] 10 mg PO Q6H PRN #10 tab 12/16/19 [Rx] Oxymetazoline [Afrin Original 0.05% Nasal [place]] 0 ml NASBOTH BID bottle 12/16/19 [Rx] Pseudoephedrine [Sudogest] 30 mg PO Q6H PRN tablet 12/16/19 [Rx] Referrals: Farhan Osborne, NUTRITION MANAGER [Primary Care Provider] - (Follow up next week with provider of choice in Farhan' absence. May call next week to make appointment.) - Discharge Summary/Plan Comment DC Time >30 min.: Yes - General Info Subjective Update: Patient reports that his pain is now resolved and he is no longer nauseated/vomiting. He is requesting coffee and food. He reports being ready for discharge. Functional Status: Reports: Pain Controlled, Tolerating Diet, Ambulating, Urinating - Review of Systems General: Denies: Fever, Weakness, Fatigue HEENT: Reports: Sinus Congestion, Rhinitis. Denies: Headaches, Sore Throat Pulmonary: Denies: Shortness of Breath, Cough, Wheezing Cardiovascular: Denies: Chest Pain, Palpitations, Edema Gastrointestinal: Denies: Abdominal Pain, Constipation, Diarrhea, Nausea, Vomiting Genitourinary: Denies: Dysuria, Frequency, Pain, Urgency, Hematuria Musculoskeletal: Denies: Neck Pain, Shoulder Pain, Arm Pain Skin: Denies: Jaundice, Bruising, Rash Neurological: Denies: Confusion, Headache, Gait Disturbance Psychiatric: Denies: Confusion, Anxiety, Agitation - Patient Data Vitals - Most Recent: Last Vital Signs Temp 36.2 C 12/16/19 06:31 Pulse 83 12/16/19 06:31 Resp 18 12/16/19 06:31 BP 148/95 H 12/16/19 06:31 Pulse Ox 98 12/16/19 06:31 Weight - Most Recent: 100.335 kg I&O - Last 24 hours: Intake & Output 12/15/19 12/16/19 12/16/19 22:59 06:59 14:59 Intake Total 3233 2080 Output Total 1900 2600 Balance 1333 -520 Med Orders - Current: Current Medications Acetaminophen (Tylenol) 650 mg PO Q4H PRN PRN Reason: Pain Last Admin: 12/16/19 06:55 Dose: 650 mg Documented by: Morphine Sulfate (Morphine) 2 mg IVPUSH Q1H PRN PRN Reason: Pain Last Admin: 12/13/19 11:11 Dose: 2 mg Documented by: Ptom Benazepril (5mg) 1 each PO DAILY [facility] Last Admin: 12/15/19 08:05 Dose: 1 each Documented by: Ptom Hildebran (Thyroid 30 Mg) 30 mg PO 0700 [facility] Last Admin: 12/16/19 06:25 Dose: 30 mg Documented by: Ondansetron HCl (Zofran) 4 mg IVPUSH Q4H PRN PRN Reason: Nausea/Vomiting Last Admin: 12/15/19 07:42 Dose: 4 mg Documented by: Oxymetazoline HCl (Afrin Original 0.05% Nasal [place]) 0 ml NASBOTH BID MIGUEL ANGEL Stop: 12/18/19 12:00 Last Admin: 12/16/19 08:39 Dose: 2 spray Documented by: Pseudoephedrine HCl (Sudogest) 30 mg PO Q6H PRN PRN Reason: sinus congestion Tamsulosin HCl (Flomax) 0.8 mg PO DAILY [facility] Last Admin: 12/15/19 08:04 Dose: 0.8 mg Documented by: Discontinued Medications Benazepril HCl (Lotensin) 5 mg PO DAILY [facility] Furosemide (Lasix) 20 mg IVPUSH NOW ONE Stop: 12/14/19 08:37 Last Admin: 12/14/19 09:04 Dose: 20 mg Documented by: Sodium Chloride (Normal Saline) 1,000 mls @ 999 mls/hr IV .BOLUS ONE Stop: 12/12/19 11:33 Last Admin: 12/12/19 10:52 Dose: 999 mls/hr Documented by: Sodium Chloride (Normal Saline) 1,000 mls @ 125 mls/hr IV ASDIRECTED [facility] Last Infusion: 12/12/19 17:48 Dose: 150 mls/hr Documented by: Sodium Chloride (Normal Saline) 1,000 mls @ 150 mls/hr IV ASDIRECTED [facility] Last Admin: 12/16/19 04:27 Dose: 150 mls/hr Documented by: Ketorolac Tromethamine (Toradol) 30 mg IVPUSH ONETIME ONE Stop: 12/12/19 14:09 Last Admin: 12/12/19 14:16 Dose: 30 mg Documented by: Ketorolac Tromethamine (Toradol) 30 mg IVPUSH Q6H PRN PRN Reason: Pain Last Admin: 12/13/19 12:34 Dose: 30 mg Documented by: Ketorolac Tromethamine (Toradol) 10 mg PO Q8H PRN PRN Reason: Pain Stop: 12/18/19 12:29 Ketorolac Tromethamine (Toradol) 15 mg IVPUSH Q6H PRN PRN Reason: Pain Last Admin: 12/13/19 18:03 Dose: 15 mg Documented by: Ketorolac Tromethamine (Toradol) 15 mg IVPUSH ONETIME ONE Stop: 12/14/19 03:09 Last Admin: 12/14/19 03:24 Dose: Not Given Documented by: Ketorolac Tromethamine (Toradol) 30 mg IVPUSH ONETIME ONE Stop: 12/14/19 03:31 Ketorolac Tromethamine (Toradol) 15 mg IVPUSH ONETIME ONE Stop: 12/14/19 03:31 Last Admin: 12/14/19 03:24 Dose: 15 mg Documented by: Ketorolac Tromethamine (Toradol) 15 mg IVPUSH Q6H PRN PRN Reason: Pain Stop: 12/16/19 08:41 Last Admin: 12/16/19 01:22 Dose: 15 mg Documented by: Morphine Sulfate (Morphine) Confirm Administered Dose 2 mg .ROUTE .STK-MED ONE Stop: 12/12/19 10:50 Last Admin: 12/12/19 11:00 Dose: Not Given Documented by: Ptom Hildebran (Thyroid 30 Mg) 30 mg PO DAILY [facility] Ondansetron HCl (Zofran) Confirm Administered Dose 4 mg .ROUTE .STK-MED ONE Stop: 12/12/19 10:50 Last Admin: 12/12/19 11:01 Dose: Not Given Documented by: Oxymetazoline HCl (Afrin Original 0.05% Nasal [place]) 1 ml CRISELDA BID [facility] Stop: 12/18/19 12:00 Last Admin: 12/15/19 11:14 Dose: Not Given Documented by: Oxymetazoline HCl (Afrin Original 0.05% Nasal [place]) 2 ml NASBOTH BID [facility] Stop: 12/18/19 12:00 Last Admin: 12/15/19 11:32 Dose: 1 spray Documented by: Tamsulosin HCl (Flomax) 0.4 mg PO DAILY [facility] Last Admin: 12/13/19 08:29 Dose: 0.4 mg Documented by: Comments:: 58 year old male sitting up in chair. No obvious distress. Did well through the night with no new concerns. Pain resolved. - Exam Physical Findings Comments:: GENERAL: Well-appearing adult in no acute distress. HEENT: Normocephalic, atraumatic. Conjunctiva clear. Nares patent without discharge. Mucous membranes moist, posterior pharynx unremarkable. NECK: Supple, no masses. CV: Regular rate and rhythm, no murmurs, rubs, or gallops. 2+ radial pulses. PULMONARY: Normal effort, clear to auscultation bilaterally, no wheezes, rales, or rhonchi. ABDOMEN: Positive bowel sounds, soft, nontender, nondistended. EXTREMITIES: No edema, cyanosis, or clubbing. MUSCULOSKELETAL: Moves all extremities well. NEUROLOGICAL: No obvious deficits. DERMATOLOGIC: No rashes or suspicious lesions in exposed areas. PSYCHIATRIC: Alert, interactive, appropriate affect.
[2019-12-16 11:36] VITALS: BP 144/86; PULSE 81
== END 2019-12-16 12:42 | disposition home or self-care (01) | DRG 694 ==
LOC: KA.MS 09:57 → OBSVTOIN 12-13 15:45
PROVIDERS: ADMIT Nurse Practitioner Family; ATTEND Nurse Practitioner Family
DX: N13.2 Hydronephrosis with renal and ureteral calculous obstruction (principal); I10 Essential (primary) hypertension; Z11.59 Encounter for screening for other viral diseases
CPT/HCPCS: 36415; 80048; 82365; 85025; 96361; 96374; 96375; 96376; A9270-GY; G0378; J1885; J1940; J2270; J2405; J7030; U0002